=== PATIENT | female | born 1990 | race Native Hawaiian/Other Pacific Islander ===

== ENCOUNTER 2017-03-25 20:03 | Emergency (ER) | payer OTHER ==
[2017-03-25 20:16] VITALS: BP 129/72; PULSE 101; RESP 16; TEMP 98.5; O2SAT 97
[2017-03-25] MEDS ORDERED: Sodium Chloride 0.9% 1,000 ML IV STA ×2 (20:37→22:28)
[2017-03-25 21:35] LABS: SQUAMOUS EPITHIAL 13 /hpf (0-5); URINE BACTERIA RARE (<OCC); URINE BILIRUBIN NEGATIVE (NEGATIVE); URINE BLOOD MODERATE (NEGATIVE); URINE CLARITY CLOUDY (Clear); URINE COLOR YELLOW (YELLOW); URINE GLUCOSE (UA) NEG (Normal); URINE LEUKOCYTE ESTERASE TRACE Leu/uL (Negative); URINE NITRATE NEGATIVE (NEGATIVE); URINE PROTEIN 30 mg/dL (NEGATIVE); URINE UROBILINOGEN 0.2-1.0 mg/dL (0.2-1.0)
--- NOTE | 2017-03-25 21:53 | ED PDOC ---
HPI: Abdomen Time Seen by Provider: 03/25/17 20:24 Chief Complaint (Nursing): GI Problem Chief Complaint (Provider): GI Problem History Per: Patient History/Exam Limitations: no limitations Additional Complaint(s): 26 year old female presents to the emergency department with a complaint of an intermittent cramping abdominal pain that started today, 03/25/2017. Associated with an uncontrollable nausea, vomiting, and diarrhea. Reports she was [place] yesterday, 03/24/2017, with her family when she began to develop a rash to the thigh in the afternoon but had resolved since. Denies pain at the moment. Past Medical History Reviewed: Historical Data, Nursing Documentation, Vital Signs Vital Signs: Last Vital Signs Temp 98.5 F 03/25/17 20:13 Pulse 101 H 03/25/17 20:13 Resp 16 03/25/17 20:13 BP 129/72 03/25/17 20:13 Pulse Ox 97 03/26/17 05:23 - Medical History PMH: No Chronic Diseases - Surgical History Surgical History: No Surg Hx - Family History Family History: States: Unknown Family Hx - Social History Current smoker - smoking cessation education provided: No Alcohol: None Drugs: Denies - Home Medications Home Medications: Ambulatory Orders Medication Instructions Recorded predniSONE [predniSONE Tab] 60 mg PO QAM #12 tab 05/04/16 Dicyclomine [Bentyl] 20 mg PO BID #30 tab 03/26/17 Ondansetron [Zofran] 4 mg PO Q8H #12 tab 03/26/17 - Allergies Allergies/Adverse Reactions: Allergies Allergy/AdvReac Type Severity Reaction Status Date / Time No Known Allergies Allergy Verified 05/04/16 03:00 Review of Systems ROS Statement: Except As Marked, All Systems Reviewed And Found Negative (As per HPI, otherwise negative) Gastrointestinal: Positive for: Nausea (Had resolved since), Vomiting (Had resolved since), Abdominal Pain (Had resolved since), Diarrhea (Had resolved since) Skin: Positive for: Rash (Had resolved since) Physical Exam - Reviewed Nursing Documentation Reviewed: Yes Vital Signs Reviewed: Yes - Physical Exam Appears: Positive for: Non-toxic, No Acute Distress Head Exam: Positive for: ATRAUMATIC, NORMAL INSPECTION, NORMOCEPHALIC Skin: Positive for: Normal Color, Warm, Dry Cardiovascular/Chest: Positive for: Regular Rate, Rhythm. Negative for: Murmur Respiratory: Positive for: Normal Breath Sounds. Negative for: Accessory Muscle Use, Respiratory Distress Gastrointestinal/Abdominal: Positive for: Soft, Tenderness (Mild diffuse tenderness to palpation). Negative for: Normal Exam, Guarding, Rebound Extremity: Positive for: Normal ROM. Negative for: Pedal Edema Neurologic/Psych: Positive for: Alert, Oriented (x3) - Laboratory Results Result Diagrams: 03/26/17 01:48 03/26/17 01:48 - ECG O2 Sat by Pulse Oximetry: 97 (RA) Pulse Ox Interpretation: Normal Medical Decision Making Medical Decision Making: Time: 2036 Initial Impression: Gastroenteritis Initial Plan: --Urine Preg --Urine DIP --Sodium Chloride 1L IV --Toradol 15 mg IVP --Zofran 4 mg IVP --Urinalysis --Reevaluation 00:10 --Patient is feeling better, and tolerating PO. 100 Pt. started to feel ill again, ordered CT A/P, morphine, and fliuds. K repleted. 04:45 Abd/Pelvis CT FINDINGS: Lower thorax: There is minimal bibasilar atelectasis. ABDOMEN: Liver: Unremarkable. No mass. Gallbladder and bile ducts: Unremarkable. No calcified stones. No ductal dilation. Pancreas: Unremarkable. No mass. No ductal dilation. Spleen: Unremarkable. No splenomegaly. Adrenals: Unremarkable. No mass. Kidneys and ureters: Unremarkable. No solid mass. No hydronephrosis. Stomach and bowel: Unremarkable. No obstruction. No mucosal thickening. Appendix: No findings to suggest acute appendicitis. Normal appendix. PELVIS: Bladder: Unremarkable. No mass. Reproductive: Unremarkable as visualized. ABDOMEN and PELVIS: Intraperitoneal space: Unremarkable. No free air. No significant fluid collection. Bones/joints: No acute fracture. No dislocation. Soft tissues: Unremarkable. Vasculature: Unremarkable. No abdominal aortic aneurysm. Lymph nodes: Unremarkable. No enlarged lymph nodes. IMPRESSION: No acute findings. 05:20 --Patient feels better, tolerating po. Upon provider evaluation patient is medically stable, and requires no further treatment in the ED at this time. Patient will be discharged home with Rx for bentyl and zofran. Counseling was provided and all questions were answered regarding diagnosis and need for follow up with outpatient clinic. There is agreement to discharge plan. Return if symptoms persist or worsen. Scribe~Attestation: Documented by Amena Graham, acting as a scribe for Ashok Dial MD. Provider Scribe~Attestation: All medical record entries made by the Scribe were at my direction and personally dictated by me. I have reviewed the chart and agree that the record accurately reflects my personal performance of the history, physical exam, medical decision making, and the department course for this patient. I have also personally directed, reviewed, and agree with the discharge instructions and disposition. Disposition - Clinical Impression Clinical Impression: Gastroenteritis - Disposition Referrals: Cathy Roque [Outside] Disposition Time: 05:20 Condition: STABLE Prescriptions: Dicyclomine [Bentyl] 20 mg PO BID #30 tab Ondansetron [Zofran] 4 mg PO Q8H #12 tab Instructions: Gastroenteritis (ED), Acute Abdominal Pain (DC) Forms: Cathy Mejía (Uzbek)
[2017-03-26] MEDS ORDERED: Iohexol 240 (50 ml) PO ONE (00:29)
[2017-03-26 01:22] LABS: VENOUS BLOOD GAS BASE EXCESS -2.2 mmol/L (0.0-2.0); VENOUS BLOOD GAS PCO2 37 mmHg (40-60); VENOUS BLOOD GAS PO2 78 mm/Hg (30-55); VENOUS BLOOD PH 7.39 (7.32-7.43)
[2017-03-26] MEDS ORDERED: Potassium CL 10 MEQ/50 ML 50 ML IVPB ONE (01:24)
[2017-03-26] MEDS ORDERED: Potassium CL 10 MEQ/50 ML 50 ML ONE (01:33)
[2017-03-26] MEDS ORDERED: Iohexol 240 (50 ml) ONE (01:33)
[2017-03-26 01:52] LABS: BASO % 0.1 % (0.0-2.0); EOS % 0.2 % (0.0-4.0); HEMOGLOBIN 11.9 g/dL (12.0-16.0); LYMPH # 1.3 K/uL (1.0-4.3); LYMPH % 12.2 % (20.0-40.0); MEAN CELL VOLUME 92.9 fl (81.0-99.0); MEAN CORPUSCULAR HEMOGLOBIN 31.6 pg (27.0-31.0); MEAN PLATELET VOLUME 7.8 fl (7.2-11.7); MONO # 0.5 K/uL (0.0-0.8); MONO % 4.4 % (0.0-10.0); NEUT # 8.8 K/uL (1.8-7.0); NEUT % 83.1 % (50.0-75.0); RBC 3.77 Mil/uL (3.80-5.20); RED CELL DISTRIBUTION WIDTH 12.7 % (11.5-14.5); WHITE BLOOD COUNT 10.6 K/uL (4.8-10.8)
[2017-03-26 02:06] LABS: ALB/GLOB RATIO 1.1 (1.0-2.1); ALBUMIN 3.1 g/dL (3.5-5.0); ALT/SGPT 19 U/L (9-52); AST/SGOT 13 U/L (14-36); BLOOD UREA NITROGEN 6 mg/dl (7-17); CALCIUM 7.9 mg/dL (8.4-10.2); GFR AFRICAN-AMERICAN > 60; GFR NON-AFRICAN AMERICAN > 60; LIPASE 121 U/L (23-300)
[2017-03-26] MEDS ORDERED: Potassium Chloride 20 mEq ER Tab PO ONE ×2 (02:41→02:59)
[2017-03-26] MEDS ORDERED: Sodium Chloride 0.9% 50 ML IV ONE (04:12)
[2017-03-26] MEDS ORDERED: Iohexol 300 100 ML IJ ONE (04:12)
--- NOTE | 2017-03-26 04:45 | CT ---
EXAM: CT Abdomen and Pelvis With Intravenous Contrast CLINICAL HISTORY: 26 years old, female; Pain; Abdominal pain; Generalized; Additional info: Diffuse abd pain, n/v/d TECHNIQUE: Axial computed tomography images of the abdomen and pelvis with intravenous contrast. All CT scans at this facility use one or more dose reduction techniques, viz.: automated exposure control; ma/kV adjustment per patient size (including targeted exams where dose is matched to indication; i.e. head); or iterative reconstruction technique. Coronal and sagittal reformatted images were created and reviewed. CONTRAST: 90 mL of omnipaque administered intravenously. COMPARISON: No relevant prior studies available. FINDINGS: Lower thorax: There is minimal bibasilar atelectasis. ABDOMEN: Liver: Unremarkable. No mass. Gallbladder and bile ducts: Unremarkable. No calcified stones. No ductal dilation. Pancreas: Unremarkable. No mass. No ductal dilation. Spleen: Unremarkable. No splenomegaly. Adrenals: Unremarkable. No mass. Kidneys and ureters: Unremarkable. No solid mass. No hydronephrosis. Stomach and bowel: Unremarkable. No obstruction. No mucosal thickening. Appendix: No findings to suggest acute appendicitis. Normal appendix. PELVIS: Bladder: Unremarkable. No mass. Reproductive: Unremarkable as visualized. ABDOMEN and PELVIS: Intraperitoneal space: Unremarkable. No free air. No significant fluid collection. Bones/joints: No acute fracture. No dislocation. Soft tissues: Unremarkable. Vasculature: Unremarkable. No abdominal aortic aneurysm. Lymph nodes: Unremarkable. No enlarged lymph nodes. IMPRESSION: No acute findings.
== END 2017-03-26 06:09 | disposition home or self-care (01) ==
LOC: H.ER 20:03
DX: K52.9 Noninfective gastroenteritis and colitis, unspecified (principal)
CPT/HCPCS: 74177; 80048; 80076; 81003; 81025; 82803; 83690; 85025; 96374; 96375; 99283; J1885; J2405; J3480; J7040; Q9966; Q9967